=== PATIENT | female | born 1935 | race Caucasian/White ===

== ENCOUNTER → 2016-05-22 | Outpatient (CLI) | payer OTHER ==
[~2016-05-22] MED LIST: AMITRIPTYLINE H50 M1 PO; ASPIR-LOW81 MG PO; ASPIRIN E.C. 8181 MG PO; CELEBREX 200MG200 MG PO; CLEOCIN HCL300 MG PO; COZAAR 50MG50 MG/TAB PO; CYCLOBENZAPRINE10 MG PO; DESYREL 50MG50 MG PO; DULCOLAX STOOL100 MG PO; INDERAL80 MG PO; IPRATROPIUM BROM3 M1 IH; LIPITOR 10MG10 MG PO; LOPRESSOR 550 MG/TAB PO; LYRICA; MIRALAX PA17 GM/Dose PO; NICODERM C21 MG/PATC TD; PACERONE200 MG PO; PERCOCET 325 MG1 TA2 PO; PLAVIX 75MG TAB75 MG PO; PREDNISONE20 MG PO; PREMARIN 0.60.625 MG PO; REMERON 15M15 MG/TA1 PO; RESTORIL 1515 MG/CAP PO; RT ADVAIR HFA 2312 G IH; Remove Patch TD; SKELAXIN800 MG PO; TYLENOL 325MG325 MG PO; ZOCOR 20MG20 MG PO
== END ==
LOC: COL.RAD 12:03
PROVIDERS: Internal Medicine Interventional Cardiology
DX: K55.8 Other vascular disorders of intestine (principal); I73.89 Other specified peripheral vascular diseases; I77.1 Stricture of artery; I70.1 Atherosclerosis of renal artery; I70.0 Atherosclerosis of aorta
CPT/HCPCS: Q9967